=== PATIENT | female | born 1945 | race Caucasian/White ===

== ENCOUNTER 2019-01-15 04:36 | Emergency (ER) | payer OTHER, BC ==
[2019-01-15] MEDS ORDERED: MECLIZINE HCL 12.5 MG TAB ONE (05:11)
[2019-01-15] MEDS ORDERED: NA CHLORIDE 0.9% 500 ML ONE ×2 (05:11→05:57)
[2019-01-15 05:48] LABS: Absolute Lymphocytes (CBC) 2.1 K/uL (0.7-4.9); Basophils % 0.9 % (0-1.3); Hematocrit 40.7 % (36.0-45.0); Lymphocytes % 33.2 % (15.3-44.8); MPV 9.7 fL (7.6-11.3); Protime INR 0.98; RBC Red Blood Cell Count 4.09 M/uL (3.86-4.86)
[2019-01-15] MEDS ORDERED: THIAMINE 200 MG/2 ML INJ ONE (05:56)
[2019-01-15 06:10] LABS: ALT/SGPT 39 U/L (12-78); AST/SGOT 24 U/L (15-37); Albumin 3.5 g/dL (3.4-5.0); Alkaline Phosphatase 91 U/L (45-117); BUN Blood Urea Nitrogen 14 mg/dL (7-18); Bicarbonate 27 mmol/L (21-32); Bilirubin Direct 0.1 mg/dL (0-0.2); Bilirubin Total 0.5 mg/dL (0.2-1.0); Glucose Level 97 mg/dL (74-106); Magnesium 1.8 mg/dL (1.8-2.4); NT PRO-BNP 251 pg/mL (<125); Protein, Total 7.7 g/dL (6.4-8.2); Sodium Level 142 mmol/L (136-145); Troponin (Emerg Dept Use Only) < 0.02 ng/mL (0.0-0.045)
[2019-01-15] MEDS ORDERED: ACETAMINOPHEN 500 MG TAB ONE (06:22)
[2019-01-15] MEDS ORDERED: AMLODIPINE 5 MG TAB ONE (06:23)
[2019-01-15] MEDS ORDERED: LABETALOL 20 MG/4ML SYRINGE IV ONE (06:23)
--- NOTE | 2019-01-15 07:31 | EDPHYS ---
Physician Documentation [facility] Name: Anna Quiñonez Age: 73 yrs Sex: Female : 1945 Arrival Date: 01/15/2019 Time: 04:38 Bed 19 Private MD: Bradford Gutierrez T ED Physician Lincoln Simental HPI: 01/15 05:00 This 73 yrs old Female presents to ER via Wheelchair with complaints of peng Dizziness, High Blood Pressure. 05:00 The patient presents with dizziness, generalized weakness. Onset: The symptoms/episode peng began/occurred just prior to arrival, this morning. Context: occurred at home. Modifying factors: The symptoms are alleviated by closing eyes, the symptoms are aggravated by movement of head, standing up, changing position. Associated signs and symptoms: The patient has no apparent associated signs or symptoms. Severity of symptoms: At their worst the symptoms were mild moderate in the emergency department the symptoms are unchanged. Patient's baseline: Neuro:. The patient has not experienced similar symptoms in the past. Historical: - Allergies: 04:57 Morphine; jb4 - Home Meds: 04:57 None [Active]; jb4 - PMHx: 04:57 None; jb4 - PSHx: 04:57 Joint replacement; Gastric Bypass; spinal surgery; jb4 - Immunization history:: Adult Immunizations up to date. - Social history:: Smoking status: Patient/guardian denies using tobacco, Patient uses alcohol, occasionally. - Ebola Screening: : No symptoms or risks identified at this time. - Family history:: not pertinent. ROS: 05:00 Constitutional: Negative for fever, chills, and weight loss, Eyes: Negative for injury, peng pain, redness, and discharge, ENT: Negative for injury, pain, and discharge, Neck: Negative for injury, pain, and swelling, Respiratory: Negative for shortness of breath, cough, wheezing, and pleuritic chest pain, Abdomen/GI: Negative for abdominal pain, nausea, vomiting, diarrhea, and constipation, Back: Negative for injury and pain, MS/Extremity: Negative for injury and deformity, Skin: Negative for injury, rash, and discoloration, Neuro: Negative for headache, weakness, numbness, tingling, and seizure, Psych: Negative for depression, anxiety, suicide ideation, homicidal ideation, and hallucinations, Allergy/Immunology: Negative for hives, rash, and allergies, Endocrine: Negative for neck swelling, polydipsia, polyuria, polyphagia, and marked weight changes. 05:00 Cardiovascular: Positive for chest pain. 05:00 Neuro: Positive for dizziness, weakness. Exam: 05:00 Constitutional: This is a well developed, well nourished patient who is awake, alert, peng and in no acute distress. Head/Face: Normocephalic, atraumatic. ENT: Nares patent. No nasal discharge, no septal abnormalities noted. Tympanic membranes are normal and external auditory canals are clear. Oropharynx with no redness, swelling, or masses, exudates, or evidence of obstruction, uvula midline. Mucous membranes moist. Neck: Trachea midline, no thyromegaly or masses palpated, and no cervical lymphadenopathy. Supple, full range of motion without nuchal rigidity, or vertebral point tenderness. No Meningismus. Chest/axilla: Normal chest wall appearance and motion. Nontender with no deformity. No lesions are appreciated. Cardiovascular: Regular rate and rhythm with a normal S1 and S2. No gallops, murmurs, or rubs. Normal PMI, no JVD. No pulse deficits. Respiratory: Lungs have equal breath sounds bilaterally, clear to auscultation and percussion. No rales, rhonchi or wheezes noted. No increased work of breathing, no retractions or nasal flaring. Abdomen/GI: Soft, non-tender, with normal bowel sounds. No distension or tympany. No guarding or rebound. No evidence of tenderness throughout. Back: No spinal tenderness. No costovertebral tenderness. Full range of motion. Female : Normal external genitalia. Skin: Warm, dry with normal turgor. Normal color with no rashes, no lesions, and no evidence of cellulitis. MS/ Extremity: Pulses equal, no cyanosis. Neurovascular intact. Full, normal range of motion. Neuro: Awake and alert, GCS 15, oriented to person, place, time, and situation. Cranial nerves II-XII grossly intact. Motor strength 5/5 in all extremities. Sensory grossly intact. Cerebellar exam normal. Normal gait. Psych: Awake, alert, with orientation to person, place and time. Behavior, mood, and affect are within normal limits. 05:00 Eyes: Periorbital structures: appear normal, no acute changes, Pupils: no acute changes, equal, round, and reactive to light and accomodation, Extraocular movements: no acute changes, Conjunctiva: normal, no acute changes, Nystagmus: nystagmus with fast component noted, bilaterally. Vital Signs: 04:57 BP 179 / 87; Pulse 121; Resp 18; Temp 98.1(O); Pulse Ox 100% on R/A; Weight 106.59 kg jb4 (R); Height 5 ft. 4 in. (162.56 cm) (R); Pain 0/10; 05:20 BP 154 / 89; Pulse 118; Resp 16; Pulse Ox 97% on R/A; jb4 06:10 BP 196 / 90 LA (man/); Pulse 104; Resp 16; Pulse Ox 100% on R/A; jb4 06:35 BP 169 / 86; Pulse 114; Resp 16; Pulse Ox 100% on R/A; jb4 07:00 BP 148 / 79; Pulse 107; Resp 16; Pulse Ox 97% ; bp 07:43 BP 142 / 70; Pulse 101; Resp 17; Temp 98.5; Pulse Ox 95% ; bp 04:57 Body Mass Index 40.34 (106.59 kg, 162.56 cm) jb4 MDM: 04:52 Patient medically screened. [facility] 05:04 Data reviewed: vital signs, nurses notes, lab test result(s), EKG, radiologic studies, [facility] CT scan, plain films. 01/15 05:00 Order name: Basic Metabolic Panel; Complete Time: 06:18 [facility] 01/15 05:00 Order name: CBC with Diff; Complete Time: 06:18 [facility] 01/15 05:00 Order name: LFT's; Complete Time: 06:18 [facility] 01/15 05:00 Order name: Magnesium; Complete Time: 06:18 [facility] 01/15 05:00 Order name: NT PRO-BNP; Complete Time: 06:18 [facility] 01/15 05:00 Order name: PT-INR; Complete Time: 06:18 [facility] 01/15 05:00 Order name: Troponin (emerg Dept Use Only); Complete Time: 06:18 [facility] 01/15 05:00 Order name: XRAY Chest (1 view) [facility] 01/15 05:00 Order name: CT Head Brain wo Cont [facility] 01/15 07:01 Order name: Urine Dipstick--Ancillary (enter results) ds4 01/15 05:00 Order name: EKG; Complete Time: 05:01 [facility] 01/15 05:00 Order name: Cardiac monitoring; Complete Time: 05:05 [facility] 01/15 05:00 Order name: EKG - Nurse/Tech; Complete Time: 05:05 [facility] 01/15 05:00 Order name: IV Saline Lock; Complete Time: 05:30 [facility] 01/15 05:00 Order name: Labs collected and sent; Complete Time: 05:30 [facility] 01/15 05:00 Order name: O2 Per Protocol; Complete Time: 05:05 [facility] 01/15 05:00 Order name: O2 Sat Monitoring; Complete Time: 05:05 [facility] 01/15 05:00 Order name: Urine Dipstick-Ancillary (obtain specimen); Complete Time: 06:58 [facility] Administered Medications: 05:28 Not Given (Patient Refused): Zofran 4 mg IVP once; over 2 minutes jb4 05:29 Drug: NS 0.9% 500 ml Route: IV; Rate: bolus; Site: right antecubital; jb4 06:00 Follow up: Response: No adverse reaction; IV Status: Completed infusion; IV Intake: jb4 500ml 05:29 Drug: Meclizine 50 mg Route: PO; jb4 06:04 Follow up: Response: No adverse reaction; Marked relief of symptoms jb4 06:01 Drug: Thiamine 100 mg Route: IV; Rate: per protocol; Site: right antecubital; jb4 06:34 Follow up: Response: No adverse reaction; IV Status: Completed infusion jb4 06:01 Drug: NS 0.9% 500 ml Route: IV; Rate: bolus; Site: right antecubital; jb4 06:34 Follow up: Response: No adverse reaction; IV Status: Completed infusion; IV Intake: jb4 500ml 06:29 Drug: Norvasc 10 mg Route: PO; jb4 07:03 Follow up: Response: No adverse reaction bp 06:29 Drug: Trandate 10 mg Route: IVP; Site: right antecubital; jb4 06:36 Follow up: Response: No adverse reaction; Blood pressure is lowered jb4 06:29 Drug: Tylenol 1000 mg Route: PO; jb4 07:03 Follow up: Response: No adverse reaction bp 07:53 Drug: Augmentin 875 mg Route: PO; bp 08:19 Follow up: Response: No adverse reaction bp Disposition: 01/15/19 07:29 Discharged to Home. Impression: Dizziness and giddiness, Vertiginous syndromes in diseases classified elsewhere, unspecified ear, Essential (primary) hypertension, Headache, Acute ethmoidal sinusitis. - Condition is Stable. - Discharge Instructions: Dizziness, Hypertension, Sinusitis, Adult, Vertigo, Sinusitis, Adult, Doef-vk-Wbqq, Hypertension, Jjsq-pd-Poty, Alcohol Abuse and Nutrition, How to Take Your Blood Pressure, Ltpu-su-Khau, Vertigo, Rsrm-tm-Lvte, Aspirin and Your Heart, Dizziness, Oqii-fu-Rrui, Managing Your Hypertension. - Prescriptions for Meclizine 25 mg Oral Tablet - take 1 tablet by ORAL route every 8 hours As needed; 30 tablet. Norvasc 5 mg Oral Tablet - take 1 tablet by ORAL route once daily; 20 tablet. Zofran 4 mg Oral Tablet - take 1 tablet by ORAL route every 12 hours As needed; 20 tablet. Vitamin 27- 0.8 mg Oral Tablet - take 1 tablet by ORAL route once daily; 30 tablet. Augmentin 875- 125 mg Oral Tablet - take 1 tablet by ORAL route every 12 hours for 10 days; 20 tablet. - Medication Reconciliation Form, Thank You Letter, Antibiotic Education, Prescription Opioid Use form. - Follow up: Bradford Gutierrez; When: 2 - 3 days; Reason: Recheck today's complaints, Continuance of care, Re-evaluation by your physician. - Problem is new. - Symptoms have improved. Signatures: Dispatcher [employer] EDFL Lincoln Simental MD MD cha Bryson, James, ERNESTINE RN jb4 Bernabe Clancy RN RN bp Corrections: (The following items were deleted from the chart) 07:47 07:29 01/15/2019 07:29 Discharged to Home. Impression: Dizziness and giddiness; peng Vertiginous syndromes in diseases classified elsewhere, unspecified ear; Essential (primary) hypertension; Headache. Condition is Stable. Discharge Instructions: Dizziness, Hypertension, Vertigo, Hypertension, Xcni-ib-Gxlo, How to Take Your Blood Pressure, Jxzf-ck-Hyhm, Vertigo, Rvlk-fq-Hfta, Aspirin and Your Heart, Dizziness, Exsz-jn-Rqjc, Managing Your Hypertension, Alcohol Abuse and Nutrition. Prescriptions for Meclizine 25 mg Oral Tablet - take 1 tablet by ORAL route every 8 hours As needed; 30 tablet, Norvasc 5 mg Oral Tablet - take 1 tablet by ORAL route once daily; 20 tablet, Zofran 4 mg Oral Tablet - take 1 tablet by ORAL route every 12 hours As needed; 20 tablet. and Forms are Medication Reconciliation Form, Thank You Letter, Antibiotic Education, Prescription Opioid Use. Follow up: Bradford Gutierrez; When: 2 - 3 days; Reason: Recheck today's complaints, Continuance of care, Re-evaluation by your physician. Problem is new. Symptoms have improved. peng 08:19 07:47 01/15/2019 07:29 Discharged to Home. Impression: Dizziness and giddiness; bp Vertiginous syndromes in diseases classified elsewhere, unspecified ear; Essential (primary) hypertension; Headache; Acute ethmoidal sinusitis. Condition is Stable. Discharge Instructions: Dizziness, Hypertension, Vertigo, Hypertension, Cnyu-ct-Tply, How to Take Your Blood Pressure, Udny-wu-Upgi, Vertigo, Kmwz-gn-Mzzj, Aspirin and Your Heart, Dizziness, Rarz-ic-Qpdy, Managing Your Hypertension, Alcohol Abuse and Nutrition. Prescriptions for Meclizine 25 mg Oral Tablet - take 1 tablet by ORAL route every 8 hours As needed; 30 tablet, Norvasc 5 mg Oral Tablet - take 1 tablet by ORAL route once daily; 20 tablet, Zofran 4 mg Oral Tablet - take 1 tablet by ORAL route every 12 hours As needed; 20 tablet, Vitamin 27-0.8 mg Oral Tablet - take 1 tablet by ORAL route once daily; 30 tablet. and Forms are Medication Reconciliation Form, Thank You Letter, Antibiotic Education, Prescription Opioid Use. Follow up: Bradford Gutierrez; When: 2 - 3 days; Reason: Recheck today's complaints, Continuance of care, Re-evaluation by your physician. Problem is new. Symptoms have improved. peng
--- NOTE | 2019-01-15 07:31 | ER ---
Nurse's Notes [facility] Name: Anna Quiñonez Age: 73 yrs Sex: Female : 1945 Arrival Date: 01/15/2019 Time: 04:38 Bed 19 Private MD: Bradford Gutierrez T Diagnosis: Dizziness and giddiness;Vertiginous syndromes in diseases classified elsewhere, unspecified ear;Essential (primary) hypertension;Headache;Acute ethmoidal sinusitis Presentation: 01/15 04:54 Presenting complaint: Patient states: I woke up around 0330 to use the restroom and jb4 suddenly got very dizzy. I took my blood pressure an it was 174/72 and my heart rate was 114. The dizziness is worse when I get up or lay down and when I turn my hear side to side. Transition of care: patient was not received from another setting of care. Onset of symptoms was January 15, 2019. Risk Assessment: Do you want to hurt yourself or someone else? Patient reports no desire to harm self or others. Initial Sepsis Screen: Does the patient meet any 2 criteria? HR > 90 bpm. Does the patient have a suspected source of infection? No. Patient's initial sepsis screen is negative. Care prior to arrival: None. 04:54 Method Of Arrival: Wheelchair jb4 04:54 Acuity: LUPE 3 jb4 Triage Assessment: 07:00 General: Appears in no apparent distress. comfortable, Behavior is cooperative, bp appropriate for age, anxious. Historical: - Allergies: 04:57 Morphine; jb4 - Home Meds: 04:57 None [Active]; jb4 - PMHx: 04:57 None; jb4 - PSHx: 04:57 Joint replacement; Gastric Bypass; spinal surgery; jb4 - Immunization history:: Adult Immunizations up to date. - Social history:: Smoking status: Patient/guardian denies using tobacco, Patient uses alcohol, occasionally. - Ebola Screening: : No symptoms or risks identified at this time. - Family history:: not pertinent. Screenin:55 Abuse screen: Denies threats or abuse. Nutritional screening: No deficits noted. jb4 Tuberculosis screening: No symptoms or risk factors identified. Fall Risk IV access (20 points). Gait- Impaired (20 pts.). Total Triplett Fall Scale indicates Low Risk Score (25-44 pts). Fall prevention measures have been instituted. Side Rails Up X 2 Placed close to Nursing Station Frequent Obs/Assesments occuring Family Present and informed to notify staff if they need to leave bedside As available Patient and Family Educated on Fall Prevention Program and strategies. Assessment: 04:55 General: Appears in no apparent distress. uncomfortable, Behavior is calm, cooperative, jb4 appropriate for age. Pain: Pain: Denies pain. Neuro: Level of Consciousness is awake, alert, obeys commands, Oriented to person, place, time, situation, Moves all extremities. Full function Speech is normal, Facial symmetry appears normal, Pupils are PERRLA, Reports dizziness, since 0330. Cardiovascular: Patient's skin is warm and dry. Respiratory: Airway is patent Respiratory effort is even, unlabored, Respiratory pattern is regular, symmetrical. GI: No deficits noted. No signs and/or symptoms were reported involving the gastrointestinal system. : No deficits noted. No signs and/or symptoms were reported regarding the genitourinary system. EENT: No deficits noted. No signs and/or symptoms were reported regarding the EENT system. Derm: Skin is intact, Skin is pink, warm \T\ dry. Musculoskeletal: Circulation, motion, and sensation intact. Range of motion: intact in all extremities. 05:31 Reassessment: Provider notified of pt's wish to speak with him. jb4 06:10 Reassessment: Patient and/or family updated on plan of care and expected duration. Pain jb4 level reassessed. Patient is alert, oriented x 3, equal unlabored respirations, skin warm/dry/pink. Provider notified of b/p see MAR for orders. 06:59 Reassessment: RECD REPORT FROM ONEAL SINHA. 73YO WF P/W DIZZINESS AND HTN STARTING AT bp 0300, S/P INGESTION OF WINE LAST NIGHT. ALL CURRENT ORDERS COMPLETED. 08:15 Reassessment: PT D/C HOME AMBULATORY WITH FAMILY, DX WITH DIZZINESS AND GIDDINESS. bp Vital Signs: 04:57 BP 179 / 87; Pulse 121; Resp 18; Temp 98.1(O); Pulse Ox 100% on R/A; Weight 106.59 kg jb4 (R); Height 5 ft. 4 in. (162.56 cm) (R); Pain 0/10; 05:20 BP 154 / 89; Pulse 118; Resp 16; Pulse Ox 97% on R/A; jb4 06:10 BP 196 / 90 LA (man/); Pulse 104; Resp 16; Pulse Ox 100% on R/A; jb4 06:35 BP 169 / 86; Pulse 114; Resp 16; Pulse Ox 100% on R/A; jb4 07:00 BP 148 / 79; Pulse 107; Resp 16; Pulse Ox 97% ; bp 07:43 BP 142 / 70; Pulse 101; Resp 17; Temp 98.5; Pulse Ox 95% ; bp 04:57 Body Mass Index 40.34 (106.59 kg, 162.56 cm) jb4 ED Course: 04:38 Patient arrived in ED. es 04:39 Bradford Gutierrez MD is Private Physician. es 04:51 Lincoln Simental MD is Attending Physician. peng 04:54 Joe Girard, RN is Primary Nurse. jb4 04:55 Patient has correct armband on for positive identification. Placed in gown. Bed in low jb4 position. Call light in reach. Side rails up X 1. personnel monitor on. Pulse ox on. NIBP on. 04:56 Triage completed. jb4 04:57 Arm band placed on right wrist. jb4 05:05 EKG done, by ED staff, reviewed by Lincoln Simental MD. ds4 05:15 Notified ED Physician PATIENT REFUSED CAT SCAN. eh 05:18 XRAY Chest (1 view) In Process Unspecified. EDMS 05:23 Initial lab(s) drawn, by ia, sent to lab. Inserted saline lock: 20 gauge in right jb4 antecubital area, using aseptic technique. Blood collected. 05:44 Troponin (emerg Dept Use Only) Sent. ds4 05:44 PT-INR Sent. ds4 05:44 NT PRO-BNP Sent. ds4 05:44 Magnesium Sent. ds4 05:44 LFT's Sent. ds4 05:44 CBC with Diff Sent. ds4 05:44 Basic Metabolic Panel Sent. ds4 06:56 CT Head Brain wo Cont In Process Unspecified. EDMS 07:01 Urine Culture Sent. ds4 07:28 Bradford Gutierrez MD is Referral Physician. peng 07:52 No provider procedures requiring assistance completed. IV discontinued, intact, bp bleeding controlled, No redness/swelling at site. Pressure dressing applied. Administered Medications: 05:28 Not Given (Patient Refused): Zofran 4 mg IVP once; over 2 minutes jb4 05:29 Drug: NS 0.9% 500 ml Route: IV; Rate: bolus; Site: right antecubital; jb4 06:00 Follow up: Response: No adverse reaction; IV Status: Completed infusion; IV Intake: jb4 500ml 05:29 Drug: Meclizine 50 mg Route: PO; jb4 06:04 Follow up: Response: No adverse reaction; Marked relief of symptoms jb4 06:01 Drug: Thiamine 100 mg Route: IV; Rate: per protocol; Site: right antecubital; jb4 06:34 Follow up: Response: No adverse reaction; IV Status: Completed infusion jb4 06:01 Drug: NS 0.9% 500 ml Route: IV; Rate: bolus; Site: right antecubital; jb4 06:34 Follow up: Response: No adverse reaction; IV Status: Completed infusion; IV Intake: jb4 500ml 06:29 Drug: Norvasc 10 mg Route: PO; jb4 07:03 Follow up: Response: No adverse reaction bp 06:29 Drug: Trandate 10 mg Route: IVP; Site: right antecubital; jb4 06:36 Follow up: Response: No adverse reaction; Blood pressure is lowered jb4 06:29 Drug: Tylenol 1000 mg Route: PO; jb4 07:03 Follow up: Response: No adverse reaction bp 07:53 Drug: Augmentin 875 mg Route: PO; bp 08:19 Follow up: Response: No adverse reaction bp Intake: 06:00 IV: 500ml; Total: 500ml. jb4 06:34 IV: 500ml; Total: 1000ml. jb4 Outcome: 07:29 Discharge ordered by . peng 08:18 Discharged to home ambulatory, with family. bp 08:18 Condition: stable 08:18 Discharge instructions given to patient, Instructed on discharge instructions, follow up and referral plans. medication usage, Demonstrated understanding of instructions, follow-up care, medications, Prescriptions given X 4. 08:19 Patient left the ED. bp Signatures: Dispatcher [employer] Lincoln Burris MD MD cha Salyer, Edna es Hagler, Ervin eh Swanson, Donovan ds4 Joe Girard RN RN jb4 Aston, Bernabe, RN RN bp Corrections: (The following items were deleted from the chart) 06:37 06:33 Trandate 10 mg IVP in right antecubital jacklyn jb4
--- NOTE | 2019-01-15 07:40 | EKG ---
Test Date: 2019-01-15 Test Time: 05:02:46 [employer]per: SOTERO MEASUREMENT RESULTS: Intervals: Rate: 114 NM: 172 QRSD: 82 QT: 338 QTc: 465 [place]: P: 64 NM: 172 QRS: 4 T: 30 INTERPRETIVE STATEMENTS: Sinus tachycardia Otherwise normal ECG Compared to ECG 07/10/2015 10:17:31 Sinus rhythm no longer present Electronically Signed On 01-15-19 07:40:28 CDT by Jayson Shafer
[2019-01-15] MEDS ORDERED: AMOX/K CLAV 875 MG TAB ONE (07:49)
--- NOTE | 2019-01-15 07:59 | RAD REPORT ---
EXAM DESCRIPTION: CT - Head Brain Wo Cont - 01/15/2019 6:55 am CLINICAL HISTORY: Headache and dizziness COMPARISON: None. TECHNIQUE: Computed axial tomography of the head was obtained. IV contrast was not requested. All CT scans are performed using dose optimization technique as appropriate and may include automated exposure control or mA/KV adjustment according to patient size. FINDINGS: An intracranial bleed is not seen . The ventricles are normal in caliber. No extra-axial fluid collection is noted. Empty sella turcica Mild to moderate opacification ethmoid sinus IMPRESSION: No acute intracranial abnormality is seen. If patient's symptoms persist MRI of the bra in would be recommended. Mild to moderate ethmoid sinusitis
--- NOTE | 2019-01-15 08:22 | RAD REPORT ---
EXAM DESCRIPTION: Leonid Single View01/15/2019 5:18 am CLINICAL HISTORY: Chest pain COMPARISON: 2011 FINDINGS: The lungs appear clear of acute infiltrate. The heart is normal size IMPRESSION: No acute abnormalities displayed
[2019-01-15 08:31] VITALS: BP 142/70; TEMP 98.5; O2SAT 95
[2019-01-15 10:20] LABS: Urine Blood NEGATIVE (NEG); Urine Glucose NEGATIVE (NEG); Urine Protein NEGATIVE (NEG); Urine Specific Gravity 1.025 (1.005-1.030)
== END 2019-01-15 08:19 | disposition home or self-care (01) ==
LOC: ER 04:36
DX: H82.9 Vertiginous syndromes in diseases classified elsewhere, unspecified ear (principal); I10 Essential (primary) hypertension; R51 Headache; J01.20 Acute ethmoidal sinusitis, unspecified; Z88.6 Allergy status to analgesic agent
CPT/HCPCS: 96365; 96361; 93005; 85025; 80048; 36415; 83735; 85610; 80076; 81003; 84484; 83880; 70450; 71045; 96375; 99285; J3411; J7040 ×2; J8597